=== PATIENT | male | born 1985 | race Caucasian/White ===

== ENCOUNTER 2020-10-04 00:21 | Emergency (ER) | payer MEDICAID, OTHER, SELFPAY ==
[~2020-10-04] VITALS: Ht 180.3 cm; Wt 103.4 kg
[2020-10-04 00:28] VITALS: BP 123/69
--- NOTE | 2020-10-04 00:45 | NUR ---
BREAK RN-INITIAL CONTACT WITH PT. ASSESSMENT DONE.
[2020-10-04] MEDS ORDERED: KETOROLAC 60 MG/2 ML IM ONE (01:00)
[2020-10-04] MEDS ORDERED: KETOROLAC 60 MG/2 ML ONE (01:09)
--- NOTE | 2020-10-04 02:33 | NUR ---
TASK RN: RADIOLOGY CALLED REGARDING RAD READ NOT BEING COMPLETE. RN INFORMED IT WOULD BE READ NEXT AT THIS TIME, FAMILY AWARE
== END 2020-10-04 03:26 | disposition home or self-care (01) ==
LOC: ED 03:00
DX: M13.132 Monoarthritis, not elsewhere classified, left wrist (principal)
CPT/HCPCS: 73110; 96372; 99283; J1885